=== PATIENT | male | born 1990 | race Caucasian/White ===

== ENCOUNTER 2022-01-15 11:44 | Emergency (ER) | payer BC, SELFPAY ==
[2022-01-15 11:58] VITALS: BP 128/71; PULSE 85; RESP 16; TEMP 37.1; O2SAT 99
--- NOTE | 2022-01-15 12:49 | ED.SKABFB ---
HPI - Skin/Abscess/Foreign Bdy General Chief complaint: Skin/Abscess/Foreign Body Stated complaint: injury Time Seen by Provider: 01/15/22 12:40 History of Present Illness HPI narrative: Bijan Corral is a 31 yo male with no PMH except for formation of cysts on head and left wrist who comes [facility] with what looks like an evolving abscess in the upper scrotal area just below the rectum along the border Related Data Allergies Allergy/AdvReac Type Severity Reaction Status Date / Time morphine Allergy Unknown Unknown Verified 01/15/22 13:24 Review of Systems Review of Systems: CONSTITUTIONAL: Denies fever, chills, sweats. EYES: Denies visual changes, redness, discharge. ENT: Denies rhinorrhea, congestion, sore throat, otalgia. CARDIOVASCULAR: Denies chest pain, palpitations, edema. RESPIRATORY: Denies dyspnea, wheezing, cough GASTROINTESTINAL: Denies abdominal pain, nausea, vomiting, diarrhea. GENITOURINARY: Denies dysuria, hematuria, abnormal discharge SKIN: Denies rash or itching. Possibly evolving abscess at upper scrotum below rectal NEUROLOGIC: Denies numbness, or focal weakness. PSYCHIATRIC: Denies anxiety or depression. [facility] Family History Family History Father Family history of mental disorder Social History Social History (Updated 01/15/22 @ 12:52 by Megan Green CNP) Smoking status: Never smoker Alcohol intake: current Alcohol use details: Patient states he is more than a social drinker Comments Minor patient Exam Narrative: GENERAL: This is a well-nourished, well-developed patient, in mild distress. HEAD: normocephalic, atraumatic. EYES: Sclera clear/white. Vision is grossly intact. EARS: External ears normal, Hearing grossly intact. NOSE: External nose normal without nasal discharge, nares without redness, no rhinorrhea. THROAT: Mucous membranes moist, NECK: Neck supple, non-tender CARDIOVASCULAR: Regular rate and rhythm without murmurs, gallops, or rubs. RESPIRATORY: Clear to auscultation. Breath sounds equal bilaterally. No wheezes, rales, or rhonchi. GASTROINTESTINAL: Abdomen soft, non-tender, SKIN: warm, intact with n Swelling and area 1 x 2 at the top of the scrotum where it connects below the anus NEURO: awake, alert, and oriented to person, place and time. There were no obvious focal neurologic abnormalities. Steady gait EXTREMITIES: Normal range of motion. BACK: Nontender without deformity Course Course Emergency Course: Patient seen here for lesion of the upper scrotum Started on Keflex and Bactrim Sitz baths Follow-up with his primary care physician or with the ER our urology if becomes larger or more painful or he begins to run a fever Level of Care: Express Care Visit Vital Signs Vital signs: Vital Signs Temperature 98.8 F 01/15/22 11:58 Pulse Rate 85 01/15/22 11:58 Respiratory Rate 16 01/15/22 11:58 Blood Pressure 128/71 01/15/22 11:58 Pulse Oximetry 99 01/15/22 11:58 Oxygen Delivery Room Air 01/15/22 11:58 Temperature 98.8 F 01/15/22 11:58 Pulse Rate 85 01/15/22 11:58 Respiratory Rate 16 01/15/22 11:58 Blood Pressure 128/71 01/15/22 11:58 Pulse Oximetry 99 01/15/22 11:58 Oxygen Delivery Room Air 01/15/22 11:58 MDM - Skin/Abscess/Foreign Bdy Differential Diagnosis Differential diagnosis: Likely abscess of skin or subcutaneous tissue, cellulitis, insect bites, contact dermatitis and other Critical Care Time Critical Care Time Critical Care Time: No Discharge Plan Discharge Clinical Impression: Cellulitis Patient Disposition: Home, Self-Care Condition: Stable Instructions: Antibiotic Form, Cellulitis (ED) Additional Instructions: Sitz baths twice a day Take antibiotics as prescribed Follow-up with primary care physician Prescriptions: New sulfamethoxazole-trimethoprim [Bactrim DS] 800-160 mg tablet 1 tablet PO Q12H 10 Days
== END 2022-01-15 13:24 | disposition home or self-care (01) ==
PROVIDERS: Emergency Provider Nurse Practitioner; PCP Family Medicine
DX: N49.2 Inflammatory disorders of scrotum (principal)
CPT/HCPCS: 99213; G0463

== ENCOUNTER 2022-09-24 18:56 | Emergency (ER) | payer BC, SELFPAY ==
--- NOTE | 2022-09-24 19:00 | ED.SKABFB ---
HPI - Skin/Abscess/Foreign Bdy General Chief complaint: Skin/Abscess/Foreign Body Stated complaint: Cyst on right pectoral Source: patient, RN notes reviewed and old records reviewed Mode of arrival: ambulatory Limitations: no limitations History of Present Illness HPI narrative: 32-year-old female male presents to the [facility] with concerns of a cyst to the right nipple area. Patient states it started as either a pimple or ingrown hair about a week ago and he has been trying to take care of it himself, picking at it with a pair of tweezers. Noticed today more increase inflammation. Tender to touch. No drainage, increased warmth. Mildly darker, red. No fluctuance noted Denies fevers. 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 Onset (ago): week(s) (1) Related Data Allergies Allergy/AdvReac Type Severity Reaction Status Date / Time morphine Allergy Unknown Unknown Verified 09/24/22 19:15 Review of Systems Review of Systems: All systems reviewed & are unremarkable except as noted in HPI and below Constitutional: Constitutional: Reports no additional constitutional complaints Eyes: Eyes: Reports no additional eye complaints ENT: Reports system reviewed and no additional complaints, except as documented Cardiovascular: Cardiovascular: Reports no additional cardiovascular complaints, Denies chest pain and Denies dyspnea Respiratory: Respiratory: Reports no additional respiratory complaints, Denies chest congestion, Denies cough and Denies dyspnea Gastrointestinal: Gastrointestinal: Reports no additional gastrointestinal complaints, Denies abdominal pain, Denies nausea and Denies vomiting Musculoskeletal: Musculoskeletal: Reports no additional musculoskeletal complaints Integumentary/Breasts: Skin/Breast: Reports as per HPI Neurologic: Reports system reviewed and no additional complaints, except as documented Psychiatric: Psychiatric: Reports no additional psychiatric complaints Allergic/Immunologic: Allergic/Immunologic: Reports no additional allergic/immunologic complaints [facility] Family History Family History Father Family history of mental disorder Social History Social History Smoking status: Never smoker Alcohol intake: current Alcohol use details: Patient states he is more than a social drinker Comments At the time of my signature, I reviewed and agree with the nursing past medical, surgical, social, and family history. There is no relevant family history pertinent to the patient complaint. Exam Const: General: cooperative, healthy appearing, comfortable, no acute distress, well developed, alert and well nourished Nutritional Appearance: well nourished Orientation/consciousness: patient oriented x3 Limitations: no limitations HENMT: Head: normal to inspection Ears: hearing grossly normal bilaterally and external ears normal Face/Nose/Sinus: Normal external nose present, Normal nares present, Normal nasal mucous membranes and turbinates present and normal facial exam Face and sinus: normal facial exam Mouth: Yes Normal oral and palatal mucosa present, Yes lip normal and Yes moist mucous membranes Eyes: General: appearance normal, both eyes and all related structures Alignment and Position: alignment normal Periorbital: periorbital findings normal Conjunctivae: conjunctivae normal Pupils: Equal, round and reactive pupils present EOM: EOMs intact bilaterally Neck: Neck: normal visual inspection, full ROM, no lymphadenopathy and no meningeal signs Chest: Chest palpation & inspection: normal inspection of the chest Resp: Effort & Inspection: normal respiratory effort and able to speak in complete sentences Auscultation: clear to auscultation bilaterally, no crackles, no rales, no rhonchi and no wheezes Cardio: Rate: regular rate Rhythm: regular rhythm Back/Spi
[2022-09-24 19:04] VITALS: BP 139/71; PULSE 80; RESP 18; TEMP 36.7; O2SAT 99
== END 2022-09-24 19:22 | disposition home or self-care (01) ==
PROVIDERS: Emergency Provider Nurse Practitioner; PCP Family Medicine
DX: N60.01 Solitary cyst of right breast (principal)
CPT/HCPCS: 99213; G0463

== ENCOUNTER 2022-11-14 14:52 | Emergency (ER) | payer BC, SELFPAY ==
--- NOTE | 2022-11-14 14:58 | ED.GENADULT ---
HPI - General Adult General Chief complaint: Upper Respiratory Infection Stated complaint: Chills,Runny Nose Time Seen by Provider: 11/14/22 14:58 Source: patient Mode of arrival: ambulatory Limitations: no limitations History of Present Illness HPI narrative: 32-year-old male patient presents to the [facility] with complaints of fevers, body aches, chills for the past 2-3 days. Denies any ear pain or sore throat. Denies any chest pain or shortness of breath. Patient states he has had just some mild cough. Patient denies any abdominal pain, nausea, vomiting or diarrhea. Patient is vaccinated against COVID. Related Data Allergies Allergy/AdvReac Type Severity Reaction Status Date / Time morphine Allergy Unknown Unknown Verified 11/14/22 15:15 Review of Systems Review of Systems: CONSTITUTIONAL: Positive fever, body aches and chills, denies sweats. EYES: Denies visual changes, redness, or discharge. ENT: Denies rhinorrhea, congestion, sore throat, or otalgia. CARDIOVASCULAR: Denies chest pain, palpitations, or edema. RESPIRATORY: Denies cough or dyspnea. GASTROINTESTINAL: Denies abdominal pain, nausea, vomiting, or diarrhea. GENITOURINARY: Denies dysuria or hematuria. SKIN: Denies rash or itching. MUSCULOSKELETAL: Denies back pain, joint pain, or myalgia. NEUROLOGIC: Denies headache, numbness, or weakness. PSYCHIATRIC: Denies anxiety or depression. [facility] Past Medical History Medical History (Updated 11/14/22 @ 15:20 by FOREST Weldon) Ganglion cyst Surgical History Surgical History (Updated 11/14/22 @ 14:59 by FOREST Weldon) History of appendectomy History of orthopedic surgery right shoulder and nose Family History Family History Father Family history of mental disorder Social History Social History Smoking status: Never smoker Alcohol intake: current Alcohol use details: Patient states he is more than a social drinker Comments At the time of my signature I agree with nursing past medical history, surgical, social, and family history. There is no relevant family history pertinent to the presenting complaint. Exam Narrative: GENERAL: Well-appearing, well-nourished, and in no acute distress. HEAD: Normocephalic, atraumatic. EYES: PERRLA and EOMI. ENT: Nares with erythema and edema noted bilaterally, no rhinorrhea or epistaxis. Mucous membranes moist. posterior pharynx with no erythema, tonsillar enlargement, exudates or lesions present. Bilateral TMs are clear no erythema from by the canal. NECK: Supple. No lymphadenopathy CHEST: Clear to auscultation. No respiratory distress. HEART: Regular rate and rhythm. No murmur heard. Normal peripheral pulses. ABDOMEN: Soft, nontender, nondistended, normal active bowel sounds. EXTREMITIES: Normal range of motion. No edema. SKIN: Warm, dry, no rash. NEURO: No focal deficits. Alert and oriented x3. Course Course Level of Care: Express Care Visit Reevaluation(s) Reevaluation #1: Re-evaluated patient notify him he is positive today for COVID. Discussed with him the risks and benefits of the Paxlovid antiviral. Patient has decided to go ahead and take the Paxil of it. Discussed with patient quarantine time including the 5 days cdc recommended quarantine time and when he can return to work. Discussed with patient that he will need to wear mask once returning to work for the 1st 5 days. If patient has worsening symptoms including chest pain or shortness of breath he needs to go the ER right away. Patient verbalized understanding, denies any other questions or concerns at this time. Date: 11/14/22 Time: 15:23 Vital Signs Vital signs: Vital Signs Temperature 37.5 C 11/14/22 15:03 Pulse Rate 104 H 11/14/22 15:03 Respiratory Rate 16 11/14/22 15:03 Blood Pressure 106/50 L 11/14/22 15:03 Pulse Oximetry 98
[2022-11-14 15:03] VITALS: BP 106/50; PULSE 104; RESP 16; TEMP 37.5; O2SAT 98
== END 2022-11-14 15:30 | disposition home or self-care (01) ==
PROVIDERS: Emergency Provider Nurse Practitioner Family; PCP Family Medicine
DX: U07.1 COVID-19 (principal)
CPT/HCPCS: 87081; 87426; 87804; 87880; 99213; C9803; G0463

== ENCOUNTER 2022-11-24 18:46 | Emergency (ER) | payer BC, SELFPAY ==
--- NOTE | ~2022-11-24 | XR_ITS ---
EXAMINATION: XR chest 2V DATE: 11/24/2022 19:14 INDICATION: COVID presenting with 10 days of cough and congestion TECHNIQUE: PA and lateral views of the chest were obtained. COMPARISON: None FINDINGS: The lungs are clear with no focal airspace opacities, pulmonary edema, pleural effusion or pneumothor ax. The cardiomediastinal silhouette is normal. Visualized bones and soft tissues are unremarkable. IMPRESSION: 1. Normal chest radiograph. Reviewed, dictated and finalized at location A. IMPRESSION: 1. Normal chest radiograph.
--- NOTE | 2022-11-24 18:48 | ED.URI ---
HPI - URI/Sore Throat General Chief Complaint: Upper Respiratory Infection Stated Complaint: congestion Time Seen by Provider: 11/24/22 18:47 Source: patient Mode of arrival: ambulatory Limitations: no limitations History of Present Illness HPI Narrative: Patient is a 32-year-old male presents with productive since Tuesday. Patient was diagnosed with COVID 10 days ago and was taking Mucinex for symptoms. Patient states by this past Tuesday he felt back to normal, but by Tuesday symptoms had resumed. Patient denies taking any for symptoms the last few days. Patient was given scripts for PAxlovid but not take it due to it being FDA approved. Patient states he is easily winded when he is trying to work out. Denies any fever, chills, ear pain, sore throat, nausea, vomiting, diarrhea. Related Data Allergies Allergy/AdvReac Type Severity Reaction Status Date / Time morphine Allergy Unknown Unknown Verified 11/14/22 15:15 Review of Systems Review of Systems: All systems reviewed & are unremarkable except as noted in HPI and below Constitutional: Constitutional: Denies body ache(s), Denies chills, Denies fatigue, Denies fever(s), Denies headache(s), Denies malaise and Denies weakness Eyes: Eyes: Denies blurry vision, Denies itchy eyes and Denies loss of vision ENT: Denies otalgia, Denies headache(s), Reports nasal congestion, Denies sinus pain and Denies sore throat Cardiovascular: Cardiovascular: Denies chest pain, Denies irregular heart rhythm and Denies dyspnea Respiratory: Respiratory: Reports cough and Denies dyspnea Gastrointestinal: Gastrointestinal: Denies abdominal pain, Denies diarrhea, Denies nausea and Denies vomiting Musculoskeletal: Musculoskeletal: Denies back pain, Denies myalgias and Denies arthralgias Integumentary/Breasts: Skin/Breast: Denies pruritus and Denies rash Neurologic: Denies headache(s), Denies loss of vision and Denies weakness Psychiatric: Psychiatric: Reports no additional psychiatric complaints Endocrine: Endocrine: Denies fatigue Allergic/Immunologic: Allergic/Immunologic: Denies itchy eyes PMFSH Past Medical History Medical History (Updated 11/24/22 @ 19:18 by Felicia Jack APRN) Ganglion cyst Surgical History Surgical History (Updated 11/14/22 @ 14:59 by FOREST Weldon) History of appendectomy History of orthopedic surgery right shoulder and nose Family History Family History Father Family history of mental disorder Social History Social History Smoking status: Never smoker Alcohol intake: current Alcohol use details: Patient states he is more than a social drinker Comments At time of signature, agree with nursing past medical, surgical, social and family history. There is no relevant family history pertinent to the presenting complaint. Exam Const: General: cooperative, healthy appearing, comfortable, no acute distress and well nourished Nutritional Appearance: well nourished Orientation/consciousness: patient oriented x3 Limitations: no limitations HENMT: Head: normal to inspection, normocephalic and atraumatic Ears: hearing grossly normal bilaterally, external ears normal, TM's normal bilaterally, EAC's normal and no periauricular adenopathy Face/Nose/Sinus: Normal external nose present, Abnormal mucous membranes and turbinates present erythematous bilateral and diffuse, normal facial exam, sinuses nontender and face symmetric Face and sinus: normal facial exam, sinuses nontender and face symmetric Mouth: Yes Normal oral and palatal mucosa present, Yes lip normal, Yes tongue normal, Yes Normal salivary glands and ducts present, Yes oropharynx normal and Yes moist mucous membranes Teeth and gingiva: dentition normal Throat: uvula midline, abnormal tonsil bilateral erythema, hypertrophy 2+ and pitting, posterior oropharynx abnormal erythema and
[2022-11-24 18:58] VITALS: BP 117/76; PULSE 76; RESP 18; TEMP 36.4; O2SAT 99
== END 2022-11-24 19:23 | disposition home or self-care (01) ==
PROVIDERS: Emergency Provider Nurse Practitioner Family; PCP Family Medicine
DX: J32.9 Chronic sinusitis, unspecified (principal); J40 Bronchitis, not specified as acute or chronic; Z86.16 Personal history of COVID-19
CPT/HCPCS: 71046; 99213; G0463

== ENCOUNTER 2024-04-06 10:14 | Emergency (ER) | payer BC, SELFPAY ==
[2024-04-06 10:22] VITALS: BP 126/79; PULSE 98; RESP 18; TEMP 36.8; O2SAT 98
--- NOTE | 2024-04-06 10:26 | ED.URI ---
HPI - URI/Sore Throat General Chief Complaint: Upper Respiratory Infection Stated Complaint: covid test Time Seen by Provider: 04/06/24 10:26 Source: patient, RN notes reviewed and old records reviewed Mode of arrival: ambulatory Limitations: no limitations History of Present Illness HPI Narrative: 33-year-old male presents to the [facility] requesting a COVID test Patient presents with with URI symptoms. Congestion started 2 weeks ago, fatigue started 2 days ago. Was seen at another urgent care, tested for strep couple of days ago which he reports is negative as well as the culture was negative. Recent exposure to strep Related Data Home Medications Medication Instructions Recorded Confirmed No Home Medications 04/06/24 04/06/24 Allergies Allergy/AdvReac Type Severity Reaction Status Date / Time morphine Allergy Unknown Unknown Verified 04/06/24 10:21 Review of Systems Review of Systems: All systems reviewed & are unremarkable except as noted in HPI and below Constitutional: Constitutional: Reports as per HPI and Reports fatigue Eyes: Eyes: Reports no additional eye complaints ENT: Reports as per HPI, Reports nasal congestion and Reports sore throat Cardiovascular: Cardiovascular: Reports no additional cardiovascular complaints, Denies chest pain and Denies dyspnea Respiratory: Respiratory: Reports no additional respiratory complaints, Denies chest congestion, Denies cough and Denies dyspnea Gastrointestinal: Gastrointestinal: Reports no additional gastrointestinal complaints, Denies abdominal pain, Denies nausea and Denies vomiting Musculoskeletal: Musculoskeletal: Reports no additional musculoskeletal complaints Integumentary/Breasts: Skin/Breast: Reports system reviewed and no additional complaints, except as docu Neurologic: Reports system reviewed and no additional complaints, except as documented Psychiatric: Psychiatric: Reports no additional psychiatric complaints Allergic/Immunologic: Allergic/Immunologic: Reports no additional allergic/immunologic complaints [facility] Past Medical History Medical History Ganglion cyst Surgical History Surgical History History of appendectomy History of orthopedic surgery right shoulder and nose Family History Family History Father Family history of mental disorder Social History Social History Smoking status: Never smoker Alcohol intake: current Alcohol use details: Patient states he is more than a social drinker Comments At the time of my signature, I reviewed and agree with the nursing past medical, surgical, social, and family history. There is no relevant family history pertinent to the patient complaint. Exam Const: General: cooperative, healthy appearing, comfortable, no acute distress, well developed, alert and well nourished Nutritional Appearance: well nourished Orientation/consciousness: patient oriented x3 Limitations: no limitations HENMT: Head: normal to inspection Ears: hearing grossly normal bilaterally, external ears normal, EAC's normal, mastoids normal, no periauricular adenopathy and TM abnormal with fluid behind the TM bilateral Face/Nose/Sinus: Normal external nose present, Normal nares present, Normal nasal mucous membranes and turbinates present, normal facial exam and face symmetric Face and sinus: normal facial exam and face symmetric Mouth: Yes Normal oral and palatal mucosa present, Yes lip normal and Yes tongue normal Throat: tonsils normal, uvula midline, postnasal drainage and no uvular edema Eyes: General: appearance normal, both eyes and all related structures Alignment and Position: alignment normal Periorbital: periorbital findings normal Neck: Neck: normal visual inspection, full ROM, no l
== END 2024-04-06 10:55 | disposition home or self-care (01) ==
PROVIDERS: Emergency Provider Nurse Practitioner; PCP Family Medicine
DX: J06.9 Acute upper respiratory infection, unspecified (principal); Z20.822 Contact with and (suspected) exposure to COVID-19
CPT/HCPCS: 87635; 87804; 99213; G0463